=== PATIENT | female | born 1945 | race Caucasian/White ===

== ENCOUNTER 2017-03-31 14:06 | Emergency (ER) | payer MEDICARE, OTHER ==
[2017-03-31] MEDS ORDERED: INDOMETHACIN 25 MG CAPSULE PO ONE (15:52)
[2017-03-31 16:33] LABS: BASO % 0.4 % (0-6); EOS % 1.3 % (0-6); GRAN % 63.2 % (47-80); HEMOGLOBIN 14.2 gm/dl (11.6-16.0); LYMPH % 32.1 % (16-45); MEAN CELL VOLUME 91.3 fl (81-97); MEAN CORPUSCULAR HEMOGLOBIN 29.5 pg (27-33); MEAN CORPUSCULAR HGB CONC 32.3 g/dl (32-36); MEAN PLATELET VOLUME 12.1 fl (7.4-10.4); PLATELET COUNT 180 K/uL (130-400); RED BLOOD COUNT 4.82 M/uL (3.80-5.40); RED CELL DISTRIBUTION WIDTH 13.1 % (11.5-14.5); WHITE BLOOD COUNT W/O DIFF 8.6 K/uL (4.2-12.2)
--- NOTE | 2017-03-31 16:41 | Emergency Department Record ---
History of Present Illness - General Chief Complaint: Ankle/Foot Injury Stated Complaint: SWELLING ON RT FOOT Time Seen by Provider: 03/31/17 15:20 Source: Patient Mode of Arrival: Ambulatory Limitations: No limitations - History of Present Illness Initial Comments: pt has had pain in r toe all week. [facility] and was started on colchicine which has not helped. Complaint: Other Onset/Timin -: Week(s) Injury: Foot: Right Type of Injury: Other Severity: Moderate Severity scale (1-10): 8 Improves With: Cold therapy, Rest, Other Worsens With: Movement Associated Symptoms: Swelling, Able to partially bear weight, Unable to bear weight - Related Data Previous Rx's Medication Instructions Recorded Hydrocodone/Acetaminophen [Addison 1 tab PO Q6H PRN #10 tab 03/31/17 5mg/325mg] Indomethacin [Indocin] 50 mg PO TID #20 cap 03/31/17 Allergies Allergy/AdvReac Type Severity Reaction Status Date / Time amoxicillin trihydrate Allergy Intermediate HYPERSENSIT Verified 03/31/17 15:30 [From Augmentin] IVITY potassium clavulanate AdvReac Intermediate HYPERSENSIT Verified 03/31/17 15:30 [From Augmentin] IVITY Travel Screening - Travel/Exposure Within Last 30 Days Have you traveled within the last 30 days?: No - Travel/Exposure Within Last Year Have you traveled outside the [place] in the last year?: No - Additonal Travel Details Have you been exposed to anyone with a communicable illness?: No Review of Systems Reviewed: No additional complaints except as noted below Constitutional: Reports: As per HPI. Denies: Chills, Fever, Malaise, Night sweats, Weakness, Weight change Eyes: Reports: As per HPI. Denies: Eye discharge, Eye pain, Photophobia, Vision change ENT: Reports: As per HPI. Denies: Congestion, Dental pain, Ear pain, Epistaxis , Hearing loss, Throat pain Respiratory: Reports: As per HPI. Denies: Cough, Dyspnea, Hemoptysis, Stridor, Wheezes Cardiovascular: Reports: As per HPI. Denies: Arrhythmia, Chest pain, Dyspnea on exertion, Edema, Murmurs, Orthopnea, Palpitations, Paroxysmal nocturnal dyspnea, Rheumatic Fever, Syncope Endocrine: Reports: As per HPI. Denies: Fatigue, Heat or cold intolerance, Polydipsia, Polyuria Gastrointestinal: Reports: As per HPI. Denies: Abdominal pain, Constipation, Diarrhea, Hematemesis, Hematochezia, Melena, Nausea, Vomiting Genitourinary: Reports: As per HPI. Denies: Abnormal menses, Discharge, Dyspareunia, Dysuria, Frequency, Hematuria, Incontinence, Retention, Urgency Musculoskeletal: Reports: As per HPI. Denies: Arthralgia, Back pain, Gout, Joint swelling, Myalgia, Neck pain Skin: Reports: As per HPI. Denies: Bruising, Change in color, Change in hair/ nails, Lesions, Pruritus, Rash Neurological: Reports: As per HPI. Denies: Abnormal gait, Confusion, Headache, Numbness, Paresthesias, Seizure, Tingling, Tremors, Vertigo, Weakness Psychiatric: Reports: As per HPI. Denies: Anxiety, Auditory hallucinations, Depression, Homicidal thoughts, Suicidal thoughts, Visual hallucinations Hematological/Lymphatic: Reports: As per HPI. Denies: Anemia, Blood Clots, Easy bleeding, Easy bruising, Swollen glands Past Medical History - SOCIAL HISTORY Smoking Status: Never smoker Alcohol Use: None Drug Use: None - RESPIRATORY Hx Respiratory Disorders: No - CARDIOVASCULAR Hx Cardio Disorders: Yes Comment:: hypercholesteremia - NEURO Hx Neuro Disorders: No - GI Hx GI Disorders: No - Hx Genitourinary Disorders: No - ENDOCRINE Hx Endocrine Disorders: No - MUSCULOSKELETAL Hx Musculoskeletal Disorders: No - PSYCH Hx Psych Problems: No - HEMATOLOGY/ONCOLOGY Hx Hematology/Oncology Disorders: No Family Medical History Any Significant Family History?: No Hx HTN: Mother Physical Exam - General General Appearance: Alert, Oriented x3, Cooperative - Head Head exam: Normal inspection - Eye Eye exam: Normal appearance, PERRL, EOMI Pupils: Normal accommodation - ENT ENT exam: Normal exam, Mucous membranes moist, Normal external ear exam, Normal orophraynx Ear exam: Normal external inspection. negative: External canal tenderness Nasal Exam: Normal inspection. negative: Discharge, Sinus tenderness Mouth exam: Normal external inspection, Tongue normal Teeth exam: Normal inspection. negative: Dental caries Throat exam: Normal inspection. negative: Tonsillar erythema, Tonsillar exudate - Neck Neck exam: Normal inspection, Full ROM. negative: Tenderness - Respiratory Respiratory exam: Normal lung sounds bilaterally. negative: Respiratory distress - Cardiovascular Cardiovascular Exam: Regular rate, Normal rhythm, Normal heart sounds - GI/Abdominal GI/Abdominal exam: Soft, Normal bowel sounds. negative: Tenderness - Rectal Rectal exam: Deferred - exam: Deferred - Extremities Extremities exam: Normal inspection, Full ROM, Normal capillary refill. negative: Tenderness Image of Feet: 1 - erythema, tender, swelling - Back Back exam: Reports: Normal inspection, Full ROM. Denies: Muscle spasm, Rash noted, Tenderness - Neurological Neurological exam: Alert, CN II-XII intact, Normal gait, Oriented X3 - Psychiatric Psychiatric exam: Normal affect, Normal mood - Skin Skin exam: Dry, Intact, Normal color, Warm Course Vital Signs 03/31/17 14:48 Temperature 97.5 F L Pulse Rate 75 Respiratory 20 Rate Blood Pressure 132/83 Pulse Ox 98 Medical Decision Making - Lab Data Result diagrams: 03/31/17 16:29 03/31/17 16:29 Lab Results 03/31/17 Range/Units 16:29 WBC 8.6 (4.2-12.2) K/uL RBC 4.82 (3.80-5.40) M/uL Hgb 14.2 (11.6-16.0) gm/dl Hct 44.0 (35.0-47.0) % MCV 91.3 (81-97) fl MCH 29.5 (27-33) pg MCHC 32.3 (32-36) g/dl RDW 13.1 (11.5-14.5) % Plt Count 180 (130-400) K/uL MPV 12.1 H (7.4-10.4) fl Gran % 63.2 (47-80) % Lymphocytes % 32.1 (16-45) % Monocytes % 3.0 (0-9) % Eosinophils % 1.3 (0-6) % Basophils % 0.4 (0-6) % Disposition Disposition: Discharge Clinical Impression: Gout Qualifiers: Gout site: toe Gout etiology: idiopathic Laterality: right Chronicity: acute Qualified Code(s): M10.071 - Idiopathic gout, right ankle and foot Disposition: Home, Self-Care Condition: (1) Good Instructions: Acute Gouty Arthritis (ED) Additional Instructions: follow up with family doctor. return sooner if worse. Prescriptions: Hydrocodone/Acetaminophen [Addison 5mg/325mg] 1 tab PO Q6H PRN #10 tab PRN Reason: Pain - General Indomethacin [Indocin] 50 mg PO TID #20 cap Forms: Patient Portal Access
[2017-03-31 16:47] LABS: ANION GAP 10.2 (7-16); BLOOD UREA NITROGEN 15 mg/dL (7-17); CARBON DIOXIDE 27.8 mmol/L (22-30); CREATININE 0.8 mg/dL (0.52-1.04); EST GLOMERULAR FILTRATION RATE > 60 ml/min; GLUCOSE,RANDOM 130 mg/dL (70-110)
[2017-03-31] MEDS ORDERED: HYDROCODONE/APAP 5/325MG TABLET PO ONE (17:02)
== END 2017-03-31 17:13 | disposition home or self-care (01) ==
LOC: ER 14:06
DX: M10.071 Idiopathic gout, right ankle and foot (principal)
CPT/HCPCS: 80048; 84550; 85025; 99283; 99284

== ENCOUNTER 2017-10-29 07:44 | Day surgery (SDC) | payer MEDICARE, OTHER ==
[~2017-10-29 07:44] MED LIST: ACETAMINOPHEN 1,000 MG/100 ML BTL IV ONE; CLINDAMYCIN 600MG/50ML PREMIX 600 MG/50 ML BAG IVPB ONE
[2017-10-29] MEDS ORDERED: LIDOCAINE 2% MDV (20MG/ML) 20ML VIAL IV ONE (07:45)
[2017-10-29] MEDS ORDERED: MIDAZOLAM HCL 2MG/2ML VIAL IV ONE (07:45)
[2017-10-29] MEDS ORDERED: PROPOFOL 10 MG/ML VIAL IV ONE (07:45)
[2017-10-29] MEDS ORDERED: DEXAMETHASONE 4 MG/ML 1ML VIAL IVP ONE (07:45)
[2017-10-29] MEDS ORDERED: BUPIVACAINE 0.75% W/EPI MPF 30ML VIAL IVP ONE (07:45)
[2017-10-29] MEDS ORDERED: FENTANYL PF 100MCG/2ML VIAL IV ONE (07:45)
[2017-10-29] MEDS ORDERED: ROPIVACAINE HCL (NAROPIN) /PF 5MG/ML 20ML VIAL IV ONE (07:45)
[2017-10-29] MEDS ORDERED: SEVOFLURANE 250 ML INH ONE (07:45)
[2017-10-29] MEDS ORDERED: KETOROLAC 30 MG/ML VIAL IVP ONE (07:45)
[2017-10-29 08:11] LABS: BASO % 0.3 % (0-6); EOS % 2.6 % (0-6); HEMOGLOBIN 14.9 gm/dl (11.6-16.0); LYMPH % 17.7 % (16-45); MEAN CELL VOLUME 91.9 fl (81-97); MEAN CORPUSCULAR HEMOGLOBIN 31.1 pg (27-33); MEAN CORPUSCULAR HGB CONC 33.9 g/dl (32-36); MEAN PLATELET VOLUME 11.7 fl (7.4-10.4); MONO % 4.4 % (0-9); PLATELET COUNT 183 K/uL (130-400); RED BLOOD COUNT 4.79 M/uL (3.80-5.40); RED CELL DISTRIBUTION WIDTH 13.5 % (11.5-14.5); WHITE BLOOD COUNT W/O DIFF 10.6 K/uL (4.2-12.2)
--- NOTE | 2017-10-30 12:50 | Operative Note ---
DATE OF SURGERY: 10/29/2017 Surgeon: Casey Alvarenga DO PREOPERATIVE DIAGNOSIS: Incarcerated incisional hernia. POSTOPERATIVE DIAGNOSIS: Incarcerated incisional hernia. OPERATION: Open incisional herniorrhaphy with mesh. Indication: The patient is a 71-year-old female who presented to the clinic with pain and bulging just above her navel. This is through one of her port sites from a prior minimally invasive surgery. We did discuss repair; risks, benefits, and alternatives. Her risks include bleeding, infection, acute or chronic pain, recurrence. She understood this fully. Thereafter, consent was signed and questions answered. PROCEDURE: She was taken to the operating room and placed in a supine position. General anesthesia was administered per the department of anesthesia. The patient's abdomen was prepped and draped in the usual fashion. The area of the hernia had been marked preoperatively. It was anesthetized with a total of 8 mL of 0.25% Sensorcaine with epinephrine. A preop tap block was also done. At this time, a 3.5 cm incision was made. This was carried down through the subcutaneous tissues down to the hernia sac. Clean circumferential fascial edges were obtained. The hernia sac was then amputated at the base. The hernia itself measured about 1 cm. At this time, an [address] mesh was obtained. This was placed in the intraperitoneal position. This was sutured in place with 2-0 Vicryl. Prior to tying the stitches down, the hernia defect was then closed with 0 Ethibond primarily. The subcutaneous tissue was then closed with 3-0 Vicryl and skin was closed with 4-0 Vicryl. She tolerated the procedure well. FINDINGS ON SURGERY: Incarcerated incisional hernia, repaired as above. CC: Elsy FERNANDES
== END 2017-10-29 11:02 | disposition home or self-care (01) ==
LOC: SUR 07:44
PROVIDERS: ATTEND Surgery
DX: K43.0 Incisional hernia with obstruction, without gangrene (principal); E11.9 Type 2 diabetes mellitus without complications; Z79.84 Long term (current) use of oral hypoglycemic drugs; I10 Essential (primary) hypertension; E78.00 Pure hypercholesterolemia, unspecified
CPT/HCPCS: 49561; 49568; 00832; 64486; 85025; 76942; J1885; J3010; J2795; J3490

== ENCOUNTER 2018-06-09 10:59 | Emergency (ER) | payer MEDICARE, OTHER ==
--- NOTE | 2018-06-09 11:23 | Emergency Department Record ---
History of Present Illness - General Chief Complaint: Back Pain/Injury Stated Complaint: BACK PAIN Time Seen by Provider: 06/09/18 11:18 Source: Patient Mode of Arrival: Ambulatory Limitations: No limitations - History of Present Illness Initial Comments: The patient is here due to a worsening of her chronic R flank pain. She states she has had pain for about a year and it got worse yesterday. The pain is sharp and crampy and located in the RUQ and R flank. She did have some nausea with it with dry heaving but that is better now. The patient has had chronic diarrhea but no fevers, chills, or dysuria. She states she has had abdominal surgeries of a Choly, Appy, and partial colon resection. MD Complaint: Back pain, Other Onset/Timin -: Days(s) Place: Home Radiation: Abdomen Severity: Moderate Severity scale (1-10): 8 Quality: Sharp Consistency: Constant Improves With: None Worsens With: None Context: Unknown Associated Symptoms: Denies other symptoms - Related Data Allergies Allergy/AdvReac Type Severity Reaction Status Date / Time amoxicillin trihydrate Allergy Intermediate HYPERSENSIT Unverified 05/16/18 13: 41 [From Augmentin] IVITY potassium clavulanate AdvReac Intermediate HYPERSENSIT Unverified 05/16/18 13:41 [From Augmentin] IVITY atorvastatin AdvReac Mild leg Unverified 05/16/18 13:41 weakness Travel Screening - Travel/Exposure Within Last 30 Days Have you traveled within the last 30 days?: No Review of Systems Constitutional: Denies: Chills, Fever Eyes: Denies: Eye discharge ENT: Denies: Congestion Respiratory: Denies: Cough Past Medical History - SOCIAL HISTORY Smoking Status: Never smoker - RESPIRATORY Hx Respiratory Disorders: No - CARDIOVASCULAR Hx Cardio Disorders: Yes Hx Hypertension: Yes (on meds good control) Comment:: hypercholesteremia - NEURO Hx Neuro Disorders: No - GI Hx GI Disorders: No Hx Abdominal Pain: Yes (occass from hernia) Hx Hepatitis/Jaundice: Yes (hep a as a teenager) Hx Irritable Bowel: Yes (a lot of diarrhea) Hx Liver Disease: Yes (fatty liver) Hx Nausea/Vomiting: Yes (nausea) - Hx Genitourinary Disorders: No Hx Bladder Problem: Yes (a little leaking) - ENDOCRINE Hx Endocrine Disorders: No Hx Diabetes: Yes (dx'd close to a year ago) Comment:: blood sugars running high - MUSCULOSKELETAL Hx Musculoskeletal Disorders: No Hx Gout: Yes - PSYCH Hx Psych Problems: No - HEMATOLOGY/ONCOLOGY Hx Hematology/Oncology Disorders: No Family Medical History Any Significant Family History?: Yes Hx HTN: Mother Physical Exam - General General Appearance: Alert, Oriented x3, Cooperative, No acute distress - Head Head exam: Atraumatic, Normocephalic, Normal inspection - Eye Eye exam: Normal appearance, PERRL - ENT Throat exam: Normal inspection. negative: Tonsillar erythema, Tonsillar exudate - Neck Neck exam: Normal inspection, Full ROM. negative: Tenderness - Respiratory Respiratory exam: Normal lung sounds bilaterally. negative: Respiratory distress - Cardiovascular Cardiovascular Exam: Regular rate, Normal rhythm, Normal heart sounds - GI/Abdominal GI/Abdominal exam: Soft, Normal bowel sounds, Tenderness (Mild RUQ tenderness.) . negative: Distended, Rebound, Rigid - Extremities Extremities exam: Normal inspection, Full ROM, Normal capillary refill. negative: Tenderness - Neurological Neurological exam: Alert, Normal gait. negative: Abnormal gait, Motor sensory deficit Course Vital Signs 06/09/18 11:12 Temperature 98.5 F Pulse Rate 79 Respiratory 16 Rate Blood Pressure 150/80 Pulse Ox 99 - Reevaluation(s) Reevaluation #1: The patient is doing a lot better at this time. I did discuss the lab tests and fatty liver on CT. She is to see her PCP later this week for recheck and have her liver function evaluated further. 06/09/18 13:48 Medical Decision Making - Data Complexity MDM Data: Labs Ordered and/or Reviewed, X-Ray Ordered and/or Reviewed - Lab Data Result diagrams: 06/09/18 12:30 06/09/18 12:30 - Radiology Data Radiology results: Report reviewed (Abd/Pelvis CT: Neg for any acute changes. Pos fatty liver.) Disposition Disposition: Discharge Clinical Impression: Flank pain, chronic Disposition: Home, Self-Care Condition: (2) Stable Instructions: Flank Pain (ED) Additional Instructions: PLease continue your regular medicines and please see your family doctor for recheck later this week. Please have your mildly elevated liver enzymes evaluated further and also the fatty liver. Return to the ER for any worsening symptoms. Forms: Patient Portal Access Time of Disposition: 13:50 Quality - Quality Measures Quality Measures: N/A - Blood Pressure Screening View Details: Yes Does Patient Have Any of the Following: No Blood Pressure Classification: Pre-Hypertensive BP Reading Systolic Measurement: 150 Diastolic Measurement: 80 Screening for High Blood Pressure: < Pre-Hypertensive BP, F/U Documented > [ [id number]] Pre-Hypertensive Follow-up Interventions: Referral to alternative/primary care provider.
[2018-06-09] MEDS ORDERED: 0.9 % SODIUM CHLORIDE 1,000 ML BAG IV ONE (11:27)
[2018-06-09] MEDS ORDERED: ONDANSETRON HCL IV 4 MG/2 ML VIAL IV ONE (11:27)
[2018-06-09] MEDS ORDERED: HYDROMORPHONE HCL 2 MG/ML VIAL IVP ONE (11:28)
[2018-06-09 12:40] LABS: HEMATOCRIT 41.4 % (35.0-47.0); HEMOGLOBIN 13.6 gm/dl (11.6-16.0); MEAN CELL VOLUME 95.2 fl (81-97); MEAN CORPUSCULAR HEMOGLOBIN 31.3 pg (27-33); MEAN CORPUSCULAR HGB CONC 32.9 g/dl (32-36); MEAN PLATELET VOLUME 11.3 fl (7.4-10.4); PLATELET COUNT 180 K/uL (130-400); RED BLOOD COUNT 4.35 M/uL (3.80-5.40); RED CELL DISTRIBUTION WIDTH 14.3 % (11.5-14.5); WHITE BLOOD COUNT W/O DIFF 8.7 K/uL (4.2-12.2)
[2018-06-09 12:47] LABS: PLATELET ESTIMATE NORMAL (NORMAL)
[2018-06-09 12:55] LABS: BLOOD UREA NITROGEN 13 mg/dL (8-23); CREATININE 0.6 mg/dL (0.5-0.9); EST GLOMERULAR FILTRATION RATE > 60 mL/min; TOTAL PROTEIN 6.9 g/dL (6.6-8.7)
[2018-06-09 12:57] LABS: GLUCOSE,RANDOM 139 mg/dL (74-109)
[2018-06-09 13:00] LABS: ALBUMIN 4.4 g/dL (4.0-5.0); ALKALINE PHOSPHATASE 89 U/L (35-104); ALT/SGPT 51 U/L (<33); AST/SGOT 62 U/L (10.0-35.0); LIPASE 54 U/L (13-60)
[2018-06-09 13:01] LABS: BILIRUBIN,DIRECT < 0.2 mg/dL (0-0.3)
[2018-06-09 13:31] LABS: URINE APPEARANCE CLEAR; URINE BILIRUBIN NEGATIVE (NEGATIVE); URINE BLOOD TRACE-I (NEGATIVE); URINE COLOR YELLOW; URINE GLUCOSE (UA) NEGATIVE (NEGATIVE); URINE KETONE NEGATIVE (NEGATIVE); URINE LEUKOCYTE ESTERASE NEGATIVE (NEGATIVE); URINE NITRITE NEGATIVE (NEGATIVE); URINE PROTEIN NEGATIVE (NEGATIVE); URINE UROBILINOGEN 0.2 E.U./dL (0.20 - 1.00)
[2018-06-09 13:37] LABS: URINE EPITHELIAL CELLS NONE SEEN (FEW); URINE RBC 0 - 2 (NONE SEEN); URINE WBC NONE SEEN (0-2/hpf)
--- NOTE | 2018-06-10 07:43 | CT SCAN REPORT ---
EXAM: CT OF THE ABDOMEN AND PELVIS WITHOUT CONTRAST HISTORY: BACK PAIN. TECHNIQUE: CT of the abdomen and pelvis was performed without oral or IV contrast. This limits evaluation of bowel and solid visceral organs. Comparison: Prior CT from 10/27/16. FINDINGS: Limited evaluation of the lung bases is unremarkable. The osseous structures are grossly intact. Fatty infiltrative change to the liver. Small hiatal hernia. Limited evaluation of the spleen, adrenal glands, pancreas and kidneys is unremarkable. No discreet urinary tract calculus or hydronephrosis. Surgical absence of the gallbladder. Surgical absence of the appendix. There is a large amount of stool in the colon. Moderate atheromatous change. The urinary bladder is incompletely distended, limiting its evaluation. No free air or free fluid. IMPRESSION: FATTY INFILTRATIVE CHANGE TO THE LIVER. NEGATIVE FOR URINARY TRACT CALCULUS OR HYDRONEPHROSIS. POST SURGICAL CHANGE, ABOVE. JOB NUMBER: [id number] MTDD
== END 2018-06-09 14:00 | disposition home or self-care (01) ==
LOC: ER 10:59
DX: G89.29 Other chronic pain (principal); M54.5 Low back pain; R10.11 Right upper quadrant pain; R94.5 Abnormal results of liver function studies; E11.9 Type 2 diabetes mellitus without complications; I10 Essential (primary) hypertension
CPT/HCPCS: 99284 ×2; 96374; 96375; 83690; 80076; 80048; 81001; 85027; 74176; J2405; J1170; J7030